=== PATIENT | female | born 1950 | race Caucasian/White ===

== ENCOUNTER → 2016-06-19 | Outpatient (CLI) | payer MEDICARE, BC | END | disposition home or self-care (01) | DX: Z12.31 Encounter for screening mammogram for malignant neoplasm of breast (principal); R92.1 Mammographic calcification found on diagnostic imaging of breast ==

== ENCOUNTER → 2016-06-19 | Outpatient (CLI) | payer MEDICARE, BC | END | disposition home or self-care (01) | DX: M85.80 Other specified disorders of bone density and structure, unspecified site (principal); M85.859 Other specified disorders of bone density and structure, unspecified thigh; M85.88 Other specified disorders of bone density and structure, other site ==

== ENCOUNTER → 2016-06-25 | Outpatient (CLI) | payer MEDICARE, BC | END | disposition home or self-care (01) | LOC: RAD.S 13:06 | DX: R92.1 Mammographic calcification found on diagnostic imaging of breast (principal) ==